=== PATIENT | male | born 1955 | race Two or more races ===

== ENCOUNTER 2021-12-06 12:15 | Day surgery (SDC) | payer MEDICARE, OTHER, BC ==
[2021-12-04 11:50] LABS: Basophils # (auto) 0 10 ^3/uL (0-0.2); Basophils % (auto) 0.7 % (0.0-2.0); Eosinophils # (auto) 0.1 10 ^3/uL (0-0.8); Eosinophils % (auto) 0.8 % (0.0-7.0); Hematocrit 45.4 % (41.0-53.0); Lymphocytes # (auto) 2.1 10 ^3/uL (0.4-5.4); Lymphocytes % (auto) 31.6 % (10.0-50.0); Mean Corpuscular Hemoglobin 32.7 pg (28.0-32.0); Mean Corpuscular Hgb Conc. 33.1 g/dL (32.0-36.0); Mean Corpuscular Volume 98.8 fL (80.0-100.0); Monocytes # (auto) 0.5 10 ^3/uL (0-1.3); Monocytes % (auto) 7.4 % (0.0-12.0); Neutrophils % (auto) 59.5 % (37.0-80.0); Red Cell Distribution Width 13.8 % (11.8-14.3); White Blood Cell 6.7 10^3/uL (4.4-10.8)
[2021-12-04 12:21] LABS: Potassium 3.9 mmol/L (3.5-5.1)
[2021-12-04 12:28] LABS: INR 0.92 (0.9-1.15); Partial Thromboplastin Time 26.3 sec (24.6-33.4)
[2021-12-04 12:34] LABS: Albumin 3.7 g/dL (3.4-5.0); BUN/Creatinine Ratio 19.8; Bilirubin, Total 0.9 mg/dL (0.2-1.0); Calcium 8.9 mg/dL (8.5-10.1); Total Protein 7.7 g/dL (6.4-8.2)
[~2021-12-06] VITALS: Ht 180.3 cm; Wt 90.7 kg
[~2021-12-06 12:15] MED LIST: ASPI1TAB20 PO; ATEN-60 PO; ATOR10TA PO; CARI-277 PO; DULO60CA PO; FINA5TAB4 PO; GABA-339 PO; IBUP-1310 PO; LEVE500T32 PO; LOSA-69 PO; PANT40TA2 PO; SERT-160 PO; TAM04C PO; [UNRECOGNIZED DRUG - CODE] PO
[2021-12-06] MEDS ORDERED: LIDOCAINE VISCOUS 2% 15ML UD ONE (12:56)
[2021-12-06] MEDS ORDERED: PROPOFOL 10 MG/ML 20 ML IV ONE ×2 (13:03→13:40)
[2021-12-06] MEDS ORDERED: MIDAZOLAM HCL 2MG/2ML 2ml VIAL (1mg/ml) ONE (13:03)
[2021-12-06] MEDS ORDERED: fentaNYL CITRATE 100 MCG/2 ML VL ONE (13:03)
[2021-12-06] MEDS ORDERED: ONDANSETRON HCL 4 MG/2 ML VIAL ONE (13:07)
[2021-12-06] MEDS ORDERED: LIDOCAINE 2% (LOCAL ANESTH.) PF 5ml SDV ONE (13:07)
[2021-12-06] MEDS ORDERED: ONDANSETRON HCL 4 MG/2 ML VIAL IV PRN (13:45)
[2021-12-06 14:05] VITALS: BP 117/70
== END 2021-12-06 14:18 | disposition home or self-care (01) ==
LOC: GI 12:15
PROVIDERS: ATTEND Internal Medicine Gastroenterology
DX: Z12.11 Encounter for screening for malignant neoplasm of colon (principal); K63.5 Polyp of colon; K64.8 Other hemorrhoids; K29.50 Unspecified chronic gastritis without bleeding; K22.70 Barrett's esophagus without dysplasia; K44.9 Diaphragmatic hernia without obstruction or gangrene; K63.89 Other specified diseases of intestine; I10 Essential (primary) hypertension; K21.9 Gastro-esophageal reflux disease without esophagitis; E78.5 Hyperlipidemia, unspecified; Z98.890 Other specified postprocedural states; Z86.010 Personal history of colon polyps; Z79.899 Other long term (current) drug therapy; Z91.041 Radiographic dye allergy status; Z20.822 Contact with and (suspected) exposure to COVID-19
CPT/HCPCS: 36415; 43239; 45380; 80053; 85025; 85610; 85730; 88305; 88312; 88342; J2001; J2250; J2405; J2704; J3010; J7030; U0003; 99153; G0500

== ENCOUNTER 2025-03-22 12:11 | Outpatient (CLI) | payer MEDICARE, BC, OTHER ==
[~2025-03-22 12:11] MED LIST changes: +CELE200C PO; -DULO60CA PO; +DULO60CA41 PO; -IBUP-1310 PO; -LEVE500T32 PO; +LEVE500T40 PO; +LOSA-534 PO; -LOSA-69 PO; -TAM04C PO; +TAMS-35 PO
[2025-03-22 12:35] LABS: Hematocrit 42.8 % (41.0-53.0); Hemoglobin 14.0 g/dL (13.5-17.5); Mean Corpuscular Hemoglobin 30.5 pg (28.0-32.0); Mean Corpuscular Volume 93.0 fL (80.0-100.0); Nucleated Red Blood Cells % 0.0 %
[2025-03-22 14:37] LABS: Alanine Aminotransferase 28 U/L (7-40); Albumin 4.3 g/dL (3.2-4.8); Alkaline Phosphatase 111 U/L (46-116); Anion Gap 12 (5-15); BUN/Creatinine Ratio 17.2 (10.0-20.0); Blood Urea Nitrogen 16 mg/dL (9-23); Calcium 9.7 mg/dL (8.7-10.4); Carbon Dioxide 24 mmol/L (20-31); Chloride 106 mmol/L (98-107); Cholesterol 183 mg/dL (< 200); Potassium 4.4 mmol/L (3.5-5.1); Sodium 142 mmol/L (136-145); Total Protein 7.7 g/dL (5.7-8.2); Triglycerides 58 mg/dL (< 150)
[2025-03-22 14:38] LABS: Bilirubin, Total 0.6 mg/dL (0.2-1.0)
[2025-03-22 14:43] LABS: Glucose 111 mg/dL (74-106); HDL Cholesterol 107 mg/dL (40-59)
[2025-03-23 06:07] LABS: Free Thyroxine Index 1.4 (1.2-4.9)
== END 2025-03-22 17:00 | disposition home or self-care (01) ==
LOC: LAB 12:11
PROVIDERS: ATTEND Internal Medicine Gastroenterology
DX: K44.9 Diaphragmatic hernia without obstruction or gangrene (principal); K63.5 Polyp of colon; R19.7 Diarrhea, unspecified; Z79.899 Other long term (current) drug therapy
CPT/HCPCS: 36415; 80053; 80061; 82274; 83036; 84443; 85025